=== PATIENT | male | born 1985 | race Caucasian/White ===

== ENCOUNTER 2024-12-03 22:25 | Emergency (ER) | payer OTHER, SELFPAY ==
[2024-12-03 22:28] VITALS: BP 121/74
[2024-12-04 00:21] VITALS: BP 114/78
[2024-12-04 00:22] VITALS: BP 114/78
--- NOTE | 2024-12-04 00:29 | ED.SKININJ ---
HPI-Injury
General
Chief Complaint: Bite
Source: patient and spouse
Time Seen by Provider: 12/04/24 00:21
History of Present Illness-Injury
Initial Injury comments:
39-year-old male with no significant past medical history presenting to the ER for evaluation of right shoulder erythema and discomfort that started after he believes he was bit by some form of insect, has had worsening erythema, pain and pressure
to the right chest wall going in towards the axillary region. Patient states he is not sure exactly what type of insect bit him but he does note a small bite dann with surrounding erythema now. No fevers, chills, rigors. Denies any history of
diabetes. He did take some Benadryl for the symptoms with minimal relief. No other concerns.
Past History
Past History
ED Past Medical History: None
ED Past Surgical History: None
Social History
Tobacco: Non-smoker
Alcohol: Occasional
Drug: None
Personal:
Living: with family
Review of Systems
Review of Systems
All Other Systems: ROS reviewed and negative except as documented in HPI and ROS
Phy Exam
Physical Exam
Physical Exam:
GENERAL: Alert , in no apparent distress
EYE: conjunctiva clear
Head: Normocephalic atraumatic
NECK: Supple,
ENT: mmm.
LUNGS: no acute respiratory distress
NEUROLOGICAL: Alert and oriented
SKIN: Warm and dry, right anterior proximal chest wall has erythema with a small bite wound just inferior to the clavicle over the midclavicular line. Erythema extends distally towards the right pectoralis and over into the right axillary region.
There is induration surrounding the bite dann extending slightly distally measuring less than 1 cm. It is tender to the touch, hot to the touch. No purulence
MUSCULOSKELETAL: well perfused.
PSYCH: Normal and appropriate interaction.
Scores
Heart Failure Risk
Heart Failure Risk Score: Not Applicable
Heart Score for Chest Pain Patients
STEMI patient?: Not applicable
Withdrawal Assessment of Alcohol
Withdrawal Assessment Completed?: Not applicable
Course
Orders/Labs/Results
Orders:
Orders
12/04/24 00:28
Cephalexin Monohydrate [Keflex] 500 mg PO NOW STA
Vital Signs
Initial and Last Documented VS:
Initial Vital Signs
Temp Pulse Resp BP Pulse Ox
97.2 F 79 18 121/74 97
12/03/24 22:28 12/03/24 22:28 12/03/24 22:28 12/03/24 22:28 12/03/24 22:28
Last Documented Vital Signs
Temp Pulse Resp BP Pulse Ox
97.2 F 66 18 114/78 97
12/04/24 00:21 12/04/24 00:21 12/04/24 00:21 12/04/24 00:22 12/04/24 00:22
MDM/Problems Addressed
Differential Diagnosis Includes:
Cellulitis, abscess, Lyme, contact dermatitis
MDM/Problems Addressed:
39-year-old male presenting to the ER for evaluation of erythema and pain overlying the right anterior chest wall, believes to have been bitten by a bug 2 days ago, symptoms gradually worsening. Based off of exam I suspect a early cellulitis with
some mild induration. No purulence appreciated. Will treat with Keflex, advised warm compresses, Motrin/Tylenol as needed for pain. Discussed return precautions to the ER. Patient otherwise stable for discharge home. Erythema not consistent
with typical erythema migrans rash from Lyme
*Pulse Oximetry
Patient hypoxic: no
*Critical Care Note
Total Time (30-74mins, 75-104mins- exclusive of procedures): Not Applicable
ED Attending Note
-
Portions of this chart may have been created with voice recognition software.� Occasional wrong word or��sound alike� substitutions may have occurred due to the inherent limitations of voice recognition software.
Discharge Plan
Departure
Patient Disposition: Home (Routine Discharge)
Date of Disposition: 12/04/24
Time of Disposition: 00:29
Patient with high blood pressure during this ER visit?: No
Discharge Problem:
Cellulitis of chest wall
Instructions: Cellulitis (skin infection) in adults - ED discharge instructions
Prescriptions:
New
cephalexin 500 mg tablet
500 mg PO TID Qty: 29 0RF
Referrals:
Pietro Jay MD [Family Provider] -
Interventions
Interventions:
*Risk Screen - Suicide Last Done: 12/03/24 22:30
*General Assessment Last Done: 12/03/24 22:30
*Neglect/Abuse Screening Last Done: 12/03/24 22:30
*ED- Fall Risk Assessment Last Done: 12/04/24 00:21
*ED COVID-19 Vaccine History Last Done: 12/03/24 22:30
ED-Skin Assessment Last Done: 12/04/24 00:21
Discharge Date and Time
Print Language: [place]
[2024-12-04] MEDS: KEFLEX 500 MG PO (00:38)
[2024-12-04 00:43] VITALS: BP 114/78
== END 2024-12-04 00:44 | disposition home or self-care (01) ==
LOC: EMR 22:25
PROVIDERS: EMERGENCY PHYSICIAN Student in an Organized Health Care Education/Training Program; FAMILY PHYSICIAN Internal Medicine
DX: L03.313 Cellulitis of chest wall (principal)
CPT/HCPCS: 99282